=== PATIENT | male | born 1960 | race Caucasian/White ===

== ENCOUNTER 2019-07-26 14:18 | Emergency (ER) | payer MEDICARE, MEDICAID ==
[~2019-07-26] VITALS: Ht 172.7 cm; Wt 77.1 kg
[~2019-07-26 14:18] MED LIST: ALEVE220 MG PO; CLEOCIN150 MG PO; DAYPRO600 M1 PO; NKHM; ROBAXIN750 MG PO; ULTRAM50 MG PO; VICODIN 500 MG-1 TAB PO
[2019-07-26] MEDS ORDERED: NORCO 5-325 TA1 EACH PO (16:22)
[2019-07-26] MEDS ORDERED: NAPROSYN500 MG PO (16:22)
== END 2019-07-26 16:51 | disposition home or self-care (01) ==
LOC: ED 14:18
DX: S92.351A Displaced fracture of fifth metatarsal bone, right foot, initial encounter for closed fracture (principal); M79.672 Pain in left foot; Z88.0 Allergy status to penicillin; W18.39XA Other fall on same level, initial encounter; Y93.01 Activity, walking, marching and hiking; Y92.89 Other specified places as the place of occurrence of the external cause; Y99.8 Other external cause status

== ENCOUNTER 2019-07-28 12:21 | Emergency (ER) | payer MEDICARE, MEDICAID ==
[~2019-07-28] VITALS: Ht 171.4 cm; Wt 77.1 kg
[~2019-07-28 12:21] MED LIST changes: +NAPROSYN500 MG PO; +NORCO 5-325 TA1 EACH PO
[2019-07-28] MEDS ORDERED: PERCOCET 5-3251 EACH PO (14:39)
== END 2019-07-28 14:40 | disposition home or self-care (01) ==
LOC: ED 12:21
DX: S92.351A Displaced fracture of fifth metatarsal bone, right foot, initial encounter for closed fracture (principal); J44.9 Chronic obstructive pulmonary disease, unspecified; M06.9 Rheumatoid arthritis, unspecified; Z88.0 Allergy status to penicillin; Z79.899 Other long term (current) drug therapy; X58.XXXA Exposure to other specified factors, initial encounter; Y93.01 Activity, walking, marching and hiking; Y92.89 Other specified places as the place of occurrence of the external cause; Y99.8 Other external cause status

== ENCOUNTER → 2020-01-19 | Emergency (ER) | payer OTHER, MEDICAID ==
[~2020-01-19] MED LIST changes: +PERCOCET 5-3251 EACH PO
== END ==
LOC: ED 22:48
DX: H57.89 Other specified disorders of eye and adnexa (principal); Z53.21 Procedure and treatment not carried out due to patient leaving prior to being seen by health care provider

== ENCOUNTER 2020-01-20 18:29 | Emergency (ER) | payer OTHER, MEDICAID ==
[~2020-01-20] VITALS: Ht 170.1 cm; Wt 72.6 kg
== END 2020-01-20 19:46 | disposition home or self-care (01) ==
LOC: ED 18:29
DX: H57.12 Ocular pain, left eye (principal); J44.9 Chronic obstructive pulmonary disease, unspecified; M06.9 Rheumatoid arthritis, unspecified; Z79.899 Other long term (current) drug therapy

== ENCOUNTER 2021-10-10 14:45 | Emergency (ER) | payer MEDICARE, OTHER ==
[~2021-10-10] VITALS: Ht 170.1 cm; Wt 68.0 kg
[2021-10-10 15:33] LABS: HEMATOCRIT 43.1 % (42.0-52.0); MEAN CELL VOLUME 89.6 fl (80.0-94.0); MEAN CORPUSCULAR HGB 30.8 pg (27.0-31.0); MEAN CORPUSCULAR HGB CONC 34.3 g/dl (33.0-37.0); MEAN PLATELET VOLUME 10.3 fl (9.6-12.3); PLATELET COUNT AUTOMATED 159 10*3/uL (130-400); RED BLOOD COUNT 4.81 10*6/uL (4.50-5.90); WHITE BLOOD COUNT 18.2 10*3/uL (4.8-10.8)
[2021-10-10 15:38] LABS: MANUAL DIFF REFLEX YES
[2021-10-10 15:48] LABS: ALKALINE PHOSPHATASE 225 U/L (45-117); BUN 28 mg/dl (7-24); CHLORIDE 98 mmol/L (98-107); CREATININE 1.07 mg/dL (0.70-1.30); POTASSIUM 2.8 mmol/L (3.5-5.1); SGOT/AST 121 IU/L (3-35); SGPT/ALT 264 U/L (12-78); SODIUM 138 mmol/L (136-145); TOTAL PROTEIN 6.7 gm/dL (6.4-8.2)
[2021-10-10 15:58] LABS: ATYPICAL LYMPHS 2 % (0-0); TOTAL CELLS COUNTED 100 #CELLS
[2021-10-10 15:59] LABS: OVALOCYTES FEW; PLATELET SUFFICIENCY NORMAL (NORMAL)
[2021-10-10 18:01] LABS: BILIRUBIN Negative (Negative); BLOOD Negative (Negative); CLARITY Clear (Clear); COLOR Yellow (Yellow); GLUCOSE 1+ (Negative); KETONE Negative (Negative); LEUKO ESTERASE Negative (Negative); NITRITE Negative (Negative); PH 6.5 (4.5-8.0)
[2021-10-10 18:18] LABS: BACTERIA 1+; EPITHELIAL CELLS 0-2
[2021-10-10] MEDS ORDERED: K-TAB20 MEQ PO (21:34)
[2021-10-10] MEDS ORDERED: PERCOCET 5-3251 EACH PO (21:42)
[2021-10-22] MEDS ORDERED: DEXAMETHASONE4 MG PO (14:38)
[2021-10-22] MEDS ORDERED: STOOL SOFT-STI1 EACH PO (14:38)
[2021-10-22] MEDS ORDERED: ALDACTONE25 MG PO (14:38)
[2021-10-22] MEDS ORDERED: LACTULOSE10 GM/151 PO (14:40)
[2021-10-24] MEDS ORDERED: TRAMADOL HCL50 MG PO (08:36)
[2021-10-24] MEDS ORDERED: LEVOFLOXACIN750 M2 PO (08:36)
[2021-10-24] MEDS ORDERED: OXYCODONE HCL5 MG PO (08:36)
[2021-10-24] MEDS ORDERED: OXYCONTIN10 M1 PO (08:36)
[2021-10-24] MEDS ORDERED: VENT7GM INH (08:36)
[2021-10-24] MEDS ORDERED: LACTULOSE10 GM/151 PO (08:36)
== END 2021-10-10 21:41 | disposition home or self-care (01) ==
LOC: ED 14:45
PROVIDERS: Physician Assistant
DX: J98.59 Other diseases of mediastinum, not elsewhere classified (principal); M79.18 Myalgia, other site; D89.89 Other specified disorders involving the immune mechanism, not elsewhere classified; M54.50 Low back pain, unspecified; M54.6 Pain in thoracic spine; Z90.49 Acquired absence of other specified parts of digestive tract; Z88.0 Allergy status to penicillin

== ENCOUNTER 2021-10-13 11:15 | Emergency (ER) | payer MEDICARE, OTHER ==
[~2021-10-13] VITALS: Ht 170.1 cm; Wt 68.0 kg
[~2021-10-13 11:15] MED LIST changes: +K-TAB20 MEQ PO
[2021-10-13] MEDS ORDERED: ROXICODONE5 MG PO (11:50)
== END 2021-10-13 12:34 | disposition home or self-care (01) ==
LOC: ED 11:15
DX: G89.29 Other chronic pain (principal); Z90.49 Acquired absence of other specified parts of digestive tract; Z98.890 Other specified postprocedural states; Z88.0 Allergy status to penicillin

== ENCOUNTER → 2021-10-14 | Outpatient (CLI) | payer MEDICARE, OTHER ==
[~2021-10-14] MED LIST changes: +ALDACTONE25 MG PO; +DEXAMETHASONE4 MG PO; +LACTULOSE10 GM/151 PO; +LEVOFLOXACIN750 M2 PO; +OXYCODONE HCL5 MG PO; +OXYCONTIN10 M1 PO; +ROXICODONE5 MG PO; +STOOL SOFT-STI1 EACH PO; +TRAMADOL HCL50 MG PO; +VENT7GM INH
== END | disposition home or self-care (01) ==
LOC: RESCLI 13:13
PROVIDERS: ATTEND Internal Medicine
DX: R22.2 Localized swelling, mass and lump, trunk (principal); R91.8 Other nonspecific abnormal finding of lung field; J18.9 Pneumonia, unspecified organism; M06.9 Rheumatoid arthritis, unspecified; M30.0 Polyarteritis nodosa; I10 Essential (primary) hypertension; Z79.899 Other long term (current) drug therapy; Z88.0 Allergy status to penicillin